=== PATIENT | male | born 1975 | race Caucasian/White ===

== ENCOUNTER 2017-02-21 09:34 | Emergency (ER) | payer MEDICAID, OTHER ==
[~2017-02-21] VITALS: Ht 188 cm; Wt 111.4 kg
[~2017-02-21 09:34] MED LIST: AMIO200 PO; ASPI81TA82 PO; CARV3.125 PO; CEPH500 PO; DOCU1CAP39 PO; FENO145T2 PO; OXYC1SOL5 PO; RIVA20 PO; ZOCO40TA PO
[2017-02-21 09:36] VITALS: BP 150/82; PULSE 62; RESP 16; TEMP 97.9; O2SAT 98
[2017-02-21 09:40] VITALS: BP 132/81; PULSE 60; RESP 18; O2SAT 97
[2017-02-21] MEDS ORDERED: SODIUM CHLORIDE 0.9% FLUSH 10 ML FLUSH IVF PRN (10:00)
[2017-02-21 10:17] LABS: AUTOMATED NEUTROPHIL # 3.4 TH/MM3 (1.8-7.7); BASOPHIL % 0.4 % (0.0-2.0); EOSINOPHIL # 0.3 TH/MM3 (0-0.4); EOSINOPHIL % 5.6 % (0.0-4.0); HEMATOCRIT 44.5 % (39.0-51.0); HEMO FLAGS DIFF FINAL; LYMPH % 27.7 % (9.0-44.0); LYMPHOCYTE # 1.7 TH/MM3 (1.0-4.8); MEAN CELL VOLUME 86.3 FL (80.0-100.0); MEAN CORPUSCULAR HEMOGLOBIN 28.7 PG (27.0-34.0); MEAN CORPUSCULAR HGB CONC 33.3 % (32.0-36.0); MONO % 12.3 % (0.0-8.0); PLATELET COUNT 183 TH/MM3 (150-450); RED BLOOD COUNT 5.16 MIL/MM3 (4.50-5.90); RED CELL DISTRIBUTION WIDTH 12.9 % (11.6-17.2); WHITE BLOOD COUNT 6.2 TH/MM3 (4.0-11.0)
--- NOTE | 2017-02-21 10:22 | RADRPT ---
EXAM DATE/TIME: 02/21/2017 10:03 [facility] COMPARISON: No previous studies available for comparison. INDICATIONS : Chest discomfort. MEDICAL HISTORY : Hypertension. Congestive heart failure. Smoker. SURGICAL HISTORY : Pacemaker. ENCOUNTER: Initial ACUITY: 1 day PAIN SCORE: 10/29 LOCATION: Bilateral chest FINDINGS: Portable AP view of the chest demonstrates a normal-sized cardiac silhouette. No effusion, consolidat ion, or pneumothorax is visualized. Lungs are underinflated. There is a single lead left chest wall c ardiac pacing device/AICD present. The bones and soft tissues demonstrate no acute abnormality. CONCLUSION: Underinflated examination without an acute cardiopulmonary abnormality identified. Da Zarate MD on February 21, 2017 at 10:19 Board Certified Radiologist. This report was verified electronically.
[2017-02-21 10:24] LABS: APTT (PATIENT) 30.8 SEC (24.3-30.1); PROTHROMBIN TIME - PATIENT 11.3 SEC (9.8-11.6)
[2017-02-21 10:36] LABS: ANION GAP 7 MEQ/L (5-15); BICARBONATE 28.3 MEQ/L (21.0-32.0); BLOOD UREA NITROGEN 8 MG/DL (7-18); CHLORIDE 105 MEQ/L (98-107); GLOMERULAR FILTRATION RATE 79 ML/MIN (>89); MAGNESIUM 2.1 MG/DL (1.5-2.5); POTASSIUM 4.1 MEQ/L (3.5-5.1); SODIUM (NA) 140 MEQ/L (136-145)
[2017-02-21 10:40] LABS: CREATINE KINASE 161 U/L (39-308)
[2017-02-21] MEDS ORDERED: ATOR20TA15 PO (10:41)
[2017-02-21] MEDS ORDERED: LISI-515 PO (10:41)
[2017-02-21] MEDS ORDERED: CARV12.52 PO (10:41)
[2017-02-21] MEDS ORDERED: XARE20TA PO (10:41)
--- NOTE | 2017-02-21 10:42 | PD ---
HPI Chief Complaint: Chest Pain Time Seen by Provider: 09:55 Travel History International Travel<30 days: No Contact w/Intl Traveler<30days: No Traveled to known affect area: No History of Present Illness HPI This is a 41-year-old male with a history of cardiomyopathy, who has an AICD, who presents today with complaints of intermittent palpitations and chest pressure. The patient states he feels more anxious than he also. The patient states he's had a GI bug for the last 24 hours and felt palpitations earlier today. He states he called the internet marketing intern office who told him to come in here and get checked out. The patient denies any chest pressure the time of my examination. He denies any shortness of breath. He denies any dizziness. He states that today when he was at the tire came in getting his van worked on, he thought he felt palpitations. There are no other complaints time my examination. PFSH Past Medical History Hx Anticoagulant Therapy: Yes (XARELTO) Arthritis: Yes Asthma: No Atrial Fibrillation: Yes Autoimmune Disease: No Blood Disorders: Yes Anxiety: Yes (PANIC ATTACKS) Depression: Yes Heart Rhythm Problems: Yes (AFIB) Cancer: No Cardiac Catheterization: Yes Cardiovascular Problems: Yes (CARDIAC ARREST, AICD, CHF, A-FIB) High Cholesterol: Yes Chemotherapy: No Chest Pain: Yes Congestive Heart Failure: Yes (SINCE 2002) COPD: No Cerebrovascular Accident: Yes (TIA X 3) Diabetes: No Diminished Hearing: No Endocrine: No Gastrointestinal Disorders: Yes GERD: Yes Genitourinary: No Hiatal Hernia: No Hypertension: Yes Immune Disorder: No Kidney Stones: No Musculoskeletal: No Neurologic: No Psychiatric: Yes (TREATED BY ZACHARIAH ARNETT IN PAST) Reproductive: No Respiratory: Yes Immunizations Current: Yes Radiation Therapy: No Renal Failure: No Sickle Cell Disease: No Sleep Apnea: No Thyroid Disease: No Ulcer: No Tetanus Vaccination: < 5 Years Influenza Vaccination: Yes PNEUMOCCOCAL Vaccine (Year): 2 Past Surgical History Abdominal Surgery: No AICD: Yes (BIO TRONIC 11/2011) Appendectomy: No Arteriovenous Shunt: No Cardiac Surgery: Yes (PACER/AICD) Cholecystectomy: No Coronary Artery Bypass Graft: No Ear Surgery: No Endocrine Surgery: No Eye Surgery: No Genitourinary Surgery: No Gynecologic Surgery: No Insulin Pump: No Joint Replacement: No Neurologic Surgery: No Oral Surgery: No Thoracic Surgery: No Other Surgery: Yes (AICD) Social History Alcohol Use: Yes (2-3 BEERS PER DAY) Tobacco Use: Yes (1 PACK EVERY 3 DAYS) Substance Use: Yes (MARIJUANA OCCASIONALLY) Allergies-Medications (Allergen,Severity, Reaction): Coded Allergies: No Known Allergies (Unverified , 02/21/17) Reported Meds & Prescriptions Reported Meds & Active Scripts Active Ativan (Lorazepam) 1 Mg Tab 1 Mg PO Q6H PRN Reported Atorvastatin (Atorvastatin Calcium) 20 Mg Tab 20 Mg PO HS Carvedilol 12.5 Mg Tab 12.5 Mg PO BID Xarelto (Rivaroxaban) 20 Mg Tab 20 Mg PO DAILY Lisinopril 20 Mg Tab 20 Mg PO DAILY Review of Systems Except as stated in HPI: all other systems reviewed are Neg General / Constitutional: No: Fever, Chills HENT: No: Headaches, Lightheadedness Cardiovascular: Positive: Chest Pain or Discomfort, Palpitations (chest pressure earlier earlier) Gastrointestinal: Positive: Diarrhea (diarrhea yesterday, none today), No: Nausea, Vomiting, Abdominal Pain Genitourinary: No: Decreased Urinary Output Musculoskeletal: No: Weakness Neurologic: No: Weakness, Dizziness, Headache, Change in Mentation Psychiatric: Positive: Anxiety, No: Depression Physical Exam Narrative GENERAL: Well-developed well-nourished male in no acute respiratory distress. SKIN: Focused skin assessment warm/dry. HEAD: Atraumatic. Normocephalic. EYES: No scleral icterus. No injection or drainage. ENT: Mucous membranes pink and moist. NECK: Trachea midline. Supple. No JVD. CARDIOVASCULAR: Regular rate and rhythm. Rate was in the 60s. No murmur appreciated. RESPIRATORY: No accessory muscle use. Clear to auscultation. Breath sounds equal bilaterally. GASTROINTESTINAL: Abdomen soft, non-tender, nondistended. MUSCULOSKELETAL: No obvious deformities. No clubbing. No cyanosis. No edema. NEUROLOGICAL: Awake and alert. No obvious cranial nerve deficits. Motor grossly within normal limits. Normal speech. Data Data Last Documented VS Vital Signs Date Time Temp Pulse Resp B/P Pulse Ox O2 Delivery O2 Flow Rate FiO2 02/21/17 11:30 54 16 115/81 97 Room Air 02/21/17 09:36 97.9 Orders Electrocardiogram (02/21/17 ) Basic Metabolic Panel (Bmp) (02/21/17 09:55) Ckmb (Isoenzyme) Profile (02/21/17 09:55) Complete Blood Count With Diff (02/21/17 09:55) Magnesium (Mg) (02/21/17 09:55) Prothrombin Time / Inr (Pt) (02/21/17 09:55) Act Partial Throm Time (Ptt) (02/21/17 09:55) Troponin I (02/21/17 09:55) Chest, Single Ap (02/21/17 09:55) Ecg Monitoring (02/21/17 09:55) Bilateral Bp Monitoring (02/21/17 09:55) Iv Access Insert/Monitor (02/21/17:55) Oximetry (02/21/17:55) Oxygen Administration (02/21/17 09:55) Sodium Chloride 0.9% Flush (Ns Flush) (02/21/17 10:00) CKMB (02/21/17 09:53) CKMB% (02/21/17 09:53) Labs Laboratory Tests Test 02/21/17 09:53 White Blood Count 6.2 TH/MM3 Red Blood Count 5.16 MIL/MM3 Hemoglobin 14.8 GM/DL Hematocrit 44.5 % Mean Corpuscular Volume 86.3 FL Mean Corpuscular Hemoglobin 28.7 PG Mean Corpuscular Hemoglobin 33.3 % Concent Red Cell Distribution Width 12.9 % Platelet Count 183 TH/MM3 Mean Platelet Volume 8.7 FL Neutrophils (%) (Auto) 54.0 % Lymphocytes (%) (Auto) 27.7 % Monocytes (%) (Auto) 12.3 % Eosinophils (%) (Auto) 5.6 % Basophils (%) (Auto) 0.4 % Neutrophils # (Auto) 3.4 TH/MM3 Lymphocytes # (Auto) 1.7 TH/MM3 Monocytes # (Auto) 0.8 TH/MM3 Eosinophils # (Auto) 0.3 TH/MM3 Basophils # (Auto) 0.0 TH/MM3 CBC Comment DIFF FINAL Differential Comment Prothrombin Time 11.3 SEC Prothromb Time International 1.0 RATIO Ratio Activated Partial 30.8 SEC Thromboplast Time Sodium Level 140 MEQ/L Potassium Level 4.1 MEQ/L Chloride Level 105 MEQ/L Carbon Dioxide Level 28.3 MEQ/L Anion Gap 7 MEQ/L Blood Urea Nitrogen 8 MG/DL Creatinine 1.03 MG/DL Estimat Glomerular Filtration 79 ML/MIN Rate Random Glucose 92 MG/DL Calcium Level 9.1 MG/DL Magnesium Level 2.1 MG/DL Total Creatine Kinase 161 U/L Creatine Kinase MB 3.7 NG/ML Troponin I LESS THAN 0.02 NG/ML MDM Medical Decision Making Medical Screen Exam Complete: Yes Emergency Medical Condition: Yes Differential Diagnosis Electrolyte abnormalities versus ventricular tachycardia versus anemia. Narrative Course 41-year-old male with a history of cardiomyopathy who has an AICD in place, presents today with complaints of palpitations and racing heart. The patient states that today he was epigastric 20 felt this onset of the symptoms. EKG shows no evidence of acute process. Troponin was negative. His blood pressure was hovering in the low 100s 104 systolic here in the department. I discussed with him that I would talk to Dr. Rubio, his internet marketing intern to see if he would adjust his carvedilol. Dr. Rubio stated that he felt symptomatic. It 's really go back to his normal dose of 6.125 twice daily. We'll recommend that he follow up in the primary care physician for his anxiety. He'll make an appointment see Dr. Rubio for the cardiac condition. I will give him a prescription for Ativan 1 mg total of 10 tablets. He is instructed to follow up with his primary care physician for further dosing. Diagnosis Primary Impression: Palpitations Additional Impressions: NICM (nonischemic cardiomyopathy) Anxiety Med/Other Pt SpecificInfo: Prescription(s) given Scripts Lorazepam (Ativan)1 Mg Tab1 Mg PO Q6H PRN (ANXIETY AND/OR AGITATION) #10 TAB Ref 0 Prov:Jet Vasquez MD 02/21/17 Disposition: 01 DISCHARGE HOME Condition: Stable Jet Vasquez MD February 21, 2017 10:42
[2017-02-21 10:58] LABS: CKMB 3.7 NG/ML (0.5-3.6)
[2017-02-21 11:30] VITALS: BP 115/81; PULSE 54; RESP 16; O2SAT 97
[2017-02-21] MEDS ORDERED: LORA-474 PO (12:36)
--- NOTE | 2017-02-21 15:52 | EKG ---
Date Performed: 02/21/2017 Time Performed: 09:44:17 PTAGE: 41 years EKG: Sinus rhythm NORMAL ECG NO PREVIOUS TRACING DOCTOR: Cody Armendariz Interpretating Date/Time 02/21/2017 15:42:29
== END 2017-02-21 14:01 | disposition home or self-care (01) ==
LOC: NEPC 09:34
DX: R00.2 Palpitations (principal); I42.9 Cardiomyopathy, unspecified; F41.9 Anxiety disorder, unspecified; Z79.899 Other long term (current) drug therapy
CPT/HCPCS: 71010; 80048; 82550; 82552; 83735; 84484; 85025; 85610; 85730; 93005

== ENCOUNTER 2017-10-02 10:17 | Emergency (ER) | payer BC, MEDICAID ==
[~2017-10-02] VITALS: Ht 188 cm; Wt 115.0 kg
[~2017-10-02 10:17] MED LIST changes: -AMIO200 PO; -ASPI81TA82 PO; +ATOR20TA15 PO; +CARV12.52 PO; -CARV3.125 PO; -CEPH500 PO; -DOCU1CAP39 PO; -FENO145T2 PO; +LISI-515 PO; +LORA-474 PO; -OXYC1SOL5 PO; -RIVA20 PO; +XARE20TA PO; -ZOCO40TA PO
[2017-10-02 10:22] VITALS: BP 178/102; PULSE 65; RESP 17; TEMP 98.1; O2SAT 100
--- NOTE | 2017-10-02 11:37 | PD ---
HPI . Lightheadedness Chief Complaint: Dizziness Time Seen by Provider: 11:01 Travel History International Travel<30 days: No Contact w/Intl Traveler<30days: No Traveled to known affect area: No History of Present Illness HPI 41 year old male patient presents to the emergency department for evaluation of lightheadedness. Patient states he has had a cough, nasal congestion and sore throat for a couple days and this morning woke up feeling dizzy. Patient had small breakfast, then started working outside, felt nauseous and lightheaded. Patient states he still tried to work and went to [employer] and lifted some heavy boxes and then felt like he was going to pass out. Patient states the reason why he had a small breakfast is he has been trying to lose weight. Patient has history of cardiac arrest in 2016 and has an implanted defibrillator. Patient denies any fever or chills, diarrhea, abdominal pain, vomiting, hematuria, dysuria. Patient currently smokes 2 cigarettes a day. Patient denies any drug use. PFSH Past Medical History Hx Anticoagulant Therapy: Yes (XARELTO) Arthritis: Yes Asthma: No Atrial Fibrillation: Yes Autoimmune Disease: No Blood Disorders: Yes Anxiety: Yes (PANIC ATTACKS) Depression: Yes Heart Rhythm Problems: Yes (AFIB) Cancer: No Cardiac Catheterization: Yes Cardiovascular Problems: Yes (AICD) High Cholesterol: Yes Chemotherapy: No Chest Pain: Yes Congestive Heart Failure: Yes COPD: No Cerebrovascular Accident: Yes (TIA X 3) Diabetes: No Diminished Hearing: No Deep Vein Thrombosis: Yes Endocrine: No Gastrointestinal Disorders: Yes GERD: Yes Genitourinary: No Hiatal Hernia: No Hypertension: Yes Immune Disorder: No Kidney Stones: No Musculoskeletal: No Neurologic: No Psychiatric: Yes (TREATED BY ZACHARIAH ARNETT IN PAST) Reproductive: No Respiratory: Yes Immunizations Current: Yes Radiation Therapy: No Renal Failure: No Sickle Cell Disease: No Sleep Apnea: No Thyroid Disease: No Ulcer: No PNEUMOCCOCAL Vaccine (Year): 2 Past Surgical History Abdominal Surgery: No AICD: Yes (BIO TRONIC 11/2011) Appendectomy: No Arteriovenous Shunt: No Cardiac Surgery: Yes Cholecystectomy: No Coronary Artery Bypass Graft: No Ear Surgery: No Endocrine Surgery: No Eye Surgery: No Genitourinary Surgery: No Gynecologic Surgery: No Insulin Pump: No Joint Replacement: No Neurologic Surgery: No Oral Surgery: No Pacemaker: Yes (biotronik ) Thoracic Surgery: No Other Surgery: Yes (AICD) Social History Alcohol Use: Yes (occassionaly ) Tobacco Use: Yes (2 cig a day ) Substance Use: No Allergies-Medications (Allergen,Severity, Reaction): Coded Allergies: No Known Allergies (Unverified Adverse Reaction, Unknown, 10/02/17) Reported Meds & Prescriptions Reported Meds & Active Scripts Active Ativan (Lorazepam) 1 Mg Tab 1 Mg PO Q6H PRN Reported Atorvastatin (Atorvastatin Calcium) 20 Mg Tab 20 Mg PO HS Carvedilol 12.5 Mg Tab 12.5 Mg PO BID Xarelto (Rivaroxaban) 20 Mg Tab 20 Mg PO DAILY Lisinopril 20 Mg Tab 20 Mg PO DAILY Review of Systems Except as stated in HPI: all other systems reviewed are Neg Physical Exam Narrative GENERAL: Well-nourished, well-developed 41-year-old male patient in no acute distress. Nontoxic appearing. SKIN: Focused skin assessment warm/dry. HEAD: Normocephalic. Atraumatic. EYES: No scleral icterus. No injection or drainage. NEUROLOGICAL: Awake and alert. Cranial nerves II through XII intact. Motor and sensory grossly within normal limits. Five out of 5 muscle strength in all muscle groups. Normal speech. NECK: Supple, trachea midline. No JVD or lymphadenopathy. CARDIOVASCULAR: Regular rate and rhythm without murmurs, gallops, or rubs. RESPIRATORY: Breath sounds equal bilaterally. No accessory muscle use. GASTROINTESTINAL: Abdomen soft, non-tender, nondistended. MUSCULOSKELETAL: No obvious deformity, ecchymosis, erythema, cyanosis, or edema. BACK: Nontender without obvious deformity. No CVA tenderness. Data Data Last Documented VS Vital Signs Date Time Temp Pulse Resp B/P (MAP) Pulse Ox O2 Delivery O2 Flow Rate FiO2 10/02/17 10:35 62 18 99 Room Air 10/02/17 10:22 98.1 178/102 (127) Orders Orders Electrocardiogram (10/02/17 11:09) Complete Blood Count With Diff (10/02/17 11:09) Comprehensive Metabolic Panel (10/02/17 11:09) Magnesium (Mg) (10/02/17 11:09) B-Type Natriuretic Peptide (10/02/17 11:09) Ckmb (Isoenzyme) Profile (10/02/17 11:09) Troponin I (10/02/17 11:09) Act Partial Throm Time (Ptt) (10/02/17 11:09) Prothrombin Time / Inr (Pt) (10/02/17 11:09) Urinalysis - C+S If Indicated (10/02/17 11:09) Chest, Single Ap (10/02/17 11:09) Blood Glucose (10/02/17 11:09) Ecg Monitoring (10/02/17 11:09) Iv Access Insert/Monitor (10/02/17 11:09) Oximetry (10/02/17 11:09) CKMB (10/02/17 11:15) CKMB% (10/02/17 11:15) Labs Laboratory Tests Test 10/02/17 11:15 10/02/17 13:10 White Blood Count 5.8 TH/MM3 Red Blood Count 5.13 MIL/MM3 Hemoglobin 14.7 GM/DL Hematocrit 44.0 % Mean Corpuscular Volume 85.7 FL Mean Corpuscular Hemoglobin 28.7 PG Mean Corpuscular Hemoglobin Concent 33.5 % Red Cell Distribution Width 13.0 % Platelet Count 225 TH/MM3 Mean Platelet Volume 8.6 FL CBC Comment AUTO DIFF Differential Total Cells Counted 100 Neutrophils % (Manual) 48 % Band Neutrophils % 1 % Lymphocytes % 33 % Monocytes % 10 % Eosinophils % 8 % Neutrophils # (Manual) 2.8 TH/MM3 Differential Comment FINAL DIFF MANUAL Platelet Estimate NORMAL Platelet Morphology Comment NORMAL Red Cell Morphology Comment NORMAL Prothrombin Time 12.7 SEC Prothromb Time International Ratio 1.3 RATIO Activated Partial Thromboplast Time 33.3 SEC Blood Urea Nitrogen 9 MG/DL Creatinine 0.96 MG/DL Random Glucose 117 MG/DL Total Protein 7.5 GM/DL Albumin 3.8 GM/DL Calcium Level 9.1 MG/DL Magnesium Level 2.1 MG/DL Alkaline Phosphatase 77 U/L Aspartate Amino Transf (AST/SGOT) 27 U/L Alanine Aminotransferase (ALT/SGPT) 51 U/L Total Bilirubin 0.6 MG/DL Sodium Level 138 MEQ/L Potassium Level 4.1 MEQ/L Chloride Level 103 MEQ/L Carbon Dioxide Level 30.9 MEQ/L Anion Gap 4 MEQ/L Estimat Glomerular Filtration Rate 85 ML/MIN Total Creatine Kinase 144 U/L Creatine Kinase MB 3.2 NG/ML Troponin I LESS THAN 0.02 NG/ML B-Type Natriuretic Peptide 8 PG/ML Urine Color LIGHT-YELLOW Urine Turbidity CLEAR Urine pH 5.5 Urine Specific [place] 1.008 Urine Protein NEG mg/dL Urine Glucose (UA) NEG mg/dL Urine Ketones NEG mg/dL Urine Occult Blood NEG Urine Nitrite NEG Urine Bilirubin NEG Urine Urobilinogen LESS THAN 2.0 MG/DL Urine Leukocyte Esterase NEG Urine RBC LESS THAN 1 /hpf Urine WBC LESS THAN 1 /hpf Urine Mucus FEW /lpf Microscopic Urinalysis Comment CULT NOT INDICATED MDM Medical Decision Making Medical Screen Exam Complete: Yes Emergency Medical Condition: Yes Differential Diagnosis Differential diagnoses include but not limited to electrolyte abnormality, sinusitis, pharyngitis, coronary event, vertigo Narrative Course Patient placed on monitor, 12 lead EKG obtained, IV obtained and blood work sent the lab. CBC, CMP, MAG, BNP, TROP/CK, PT/INR, UA ordered and pending. Chest X-ray ordered and pending. Blood glucose ordered and pending. Glucose is 114. Blood work shows no acute abnormalities. Chest x-ray shows no acute cardiopulmonary disease. Urine is negative for any acute abnormalities. Based on patient's symptoms, clinical presentation, lab results, radiological results , vital sign review and physical exam it is not necessary to admit the patient to the hospital or keep the patient in the emergency department for further evaluation. Patient will be discharged home with instructions to return the emergency Department with any worsening condition. Laboratory Tests Test 10/02/17 11:15 White Blood Count 5.8 TH/MM3 Red Blood Count 5.13 MIL/MM3 Hemoglobin 14.7 GM/DL Hematocrit 44.0 % Mean Corpuscular Volume 85.7 FL Mean Corpuscular Hemoglobin 28.7 PG Mean Corpuscular Hemoglobin Concent 33.5 % Red Cell Distribution Width 13.0 % Platelet Count 225 TH/MM3 Mean Platelet Volume 8.6 FL CBC Comment AUTO DIFF Differential Total Cells Counted 100 Neutrophils % (Manual) 48 % Band Neutrophils % 1 % Lymphocytes % 33 % Monocytes % 10 % Eosinophils % 8 % Neutrophils # (Manual) 2.8 TH/MM3 Differential Comment FINAL DIFF MANUAL Platelet Estimate NORMAL Platelet Morphology Comment NORMAL Red Cell Morphology Comment NORMAL Prothrombin Time 12.7 SEC Prothromb Time International Ratio 1.3 RATIO Activated Partial Thromboplast Time 33.3 SEC Blood Urea Nitrogen 9 MG/DL Creatinine 0.96 MG/DL Random Glucose 117 MG/DL Total Protein 7.5 GM/DL Albumin 3.8 GM/DL Calcium Level 9.1 MG/DL Magnesium Level 2.1 MG/DL Alkaline Phosphatase 77 U/L Aspartate Amino Transf (AST/SGOT) 27 U/L Alanine Aminotransferase (ALT/SGPT) 51 U/L Total Bilirubin 0.6 MG/DL Sodium Level 138 MEQ/L Potassium Level 4.1 MEQ/L Chloride Level 103 MEQ/L Carbon Dioxide Level 30.9 MEQ/L Anion Gap 4 MEQ/L Estimat Glomerular Filtration Rate 85 ML/MIN Total Creatine Kinase 144 U/L Creatine Kinase MB 3.2 NG/ML Troponin I LESS THAN 0.02 NG/ML B-Type Natriuretic Peptide 8 PG/ML Last Impressions Chest X-Ray 10/02/17 1109 Signed Impressions: Service Date/Time: September 11:32 - CONCLUSION: No acute cardiopulmonary disease. Johnathan Syed MD Diagnosis Primary Impression: Anxiety Referrals: Primary Care Physician Patient Instructions: Anxiety (ED), General Instructions Additional Instructions: Please return to emergency department if your symptoms return or worsen. Follow up with your primary care provider. Regular diet as tolerated. Supportive care, stay hydrated, get enough rest. Disposition: 01 DISCHARGE HOME Condition: Stable Marita Trejo Oct 02, 2017 11:37
[2017-10-02 11:52] LABS: HEMOGLOBIN 14.7 GM/DL (13.0-17.0); MEAN CELL VOLUME 85.7 FL (80.0-100.0); MEAN CORPUSCULAR HEMOGLOBIN 28.7 PG (27.0-34.0); MEAN CORPUSCULAR HGB CONC 33.5 % (32.0-36.0); MEAN PLATELET VOLUME 8.6 FL (7.0-11.0); PLATELET COUNT 225 TH/MM3 (150-450); RED BLOOD COUNT 5.13 MIL/MM3 (4.50-5.90); WHITE BLOOD COUNT 5.8 TH/MM3 (4.0-11.0)
[2017-10-02 11:53] LABS: INTERNATIONAL NORMALIZED RATIO 1.3 RATIO; PROTHROMBIN TIME - PATIENT 12.7 SEC (9.8-11.6)
[2017-10-02 12:06] LABS: ALBUMIN 3.8 GM/DL (3.4-5.0); ALT (GPT) 51 U/L (12-78); BICARBONATE 30.9 MEQ/L (21.0-32.0); BLOOD UREA NITROGEN 9 MG/DL (7-18); CALCIUM 9.1 MG/DL (8.5-10.1); CHLORIDE 103 MEQ/L (98-107); GLUCOSE,RANDOM 117 MG/DL (74-106); MAGNESIUM 2.1 MG/DL (1.5-2.5); SODIUM (NA) 138 MEQ/L (136-145)
[2017-10-02 12:10] LABS: ALKALINE PHOSPHATASE 77 U/L (45-117); AST (GOT) 27 U/L (15-37); CREATININE 0.96 MG/DL (0.60-1.30); GLOMERULAR FILTRATION RATE 85 ML/MIN (>89); TOTAL BILIRUBIN ADULT 0.6 MG/DL (0.2-1.0); TOTAL PROTEIN 7.5 GM/DL (6.4-8.2); TROPONIN I LESS THAN 0.02 NG/ML (0.02-0.05)
--- NOTE | 2017-10-02 12:15 | RADRPT ---
EXAM DATE/TIME: 10/02/2017 11:32 [facility] COMPARISON: CHEST SINGLE AP, February 21, 2017, 10:03. INDICATIONS : Syncope and short of breath. MEDICAL HISTORY : Hypertension. Congestive heart failure. Smoker. SURGICAL HISTORY : Pacemaker. ENCOUNTER: Initial ACUITY: 1 day PAIN SCORE: 0/10 LOCATION: Bilateral chest FINDINGS: The heart is stable. The pulmonary vascular and is normal. The lungs are clear. Left subclavian AICD has its tip in the right ventricle. No pneumothorax is noted. CONCLUSION: No acute cardiopulmonary disease. Johnathan Syed MD on October 02, 2017 at 12:11 Board Certified Radiologist. This report was verified electronically.
[2017-10-02 12:21] LABS: BANDS 1 % (0-6); LYMPHOCYTES 33 % (9-44); MONOCYTES 10 % (0-8); NEUTROPHIL # MANUAL DIFF 2.8 TH/MM3 (1.8-7.7); POLYS (SEG NEUTROPHILS) 48 % (16-70)
[2017-10-02 14:11] LABS: BILIRUBIN, URINE NEG (NEG); BLOOD, URINE NEG (NEG); GLUCOSE,URINE NEG (NEG); KETONE, URINE NEG (NEG); MUCUS URINE FEW /lpf (OCC); NITRITE,URINE NEG (NEG); PH, URINE 5.5 (5.0-8.5); URINE COLOR LIGHT-YELLOW (YELLW/STRAW); URINE LEUKOCYTE ESTERASE NEG (NEG)
[2017-10-02 14:40] VITALS: BP 120/85
--- NOTE | 2017-10-04 12:26 | EKG ---
Date Performed: 10/02/2017 Time Performed: 10:37:12 PTAGE: 41 years EKG: SINUS BRADYCARDIA LOW QRS VOLTAGE IN PRECORDIAL LEADS BORDERLINE ECG PREVIOUS TRACING : 02/21/2017 09.44 DOCTOR: Eli Rios Interpretating Date/Time 10/04/2017 12:25:57
== END 2017-10-02 14:42 | disposition home or self-care (01) ==
LOC: NEPC 10:17
DX: F41.9 Anxiety disorder, unspecified (principal); F17.210 Nicotine dependence, cigarettes, uncomplicated; E78.00 Pure hypercholesterolemia, unspecified; I11.0 Hypertensive heart disease with heart failure; I50.9 Heart failure, unspecified; I48.91 Unspecified atrial fibrillation; Z79.01 Long term (current) use of anticoagulants
CPT/HCPCS: 71010; 80053; 81001; 82550; 82552; 83735; 83880; 84484; 85007; 85027; 85610; 85730; 93005; 99285

== ENCOUNTER 2018-01-06 09:59 | Emergency (ER) | payer MEDICAID ==
[2018-01-06 10:30] VITALS: BP 129/78; PULSE 61; RESP 18; TEMP 97.5; O2SAT 98
[2018-01-06 11:20] LABS: AUTOMATED NEUTROPHIL # 5.3 TH/MM3 (1.8-7.7); BASOPHIL % 0.6 % (0.0-2.0); EOSINOPHIL # 0.4 TH/MM3 (0-0.4); HEMATOCRIT 42.9 % (39.0-51.0); HEMOGLOBIN 14.5 GM/DL (13.0-17.0); LYMPH % 21.5 % (9.0-44.0); LYMPHOCYTE # 1.7 TH/MM3 (1.0-4.8); MEAN CELL VOLUME 85.4 FL (80.0-100.0); MEAN CORPUSCULAR HEMOGLOBIN 28.8 PG (27.0-34.0); MEAN CORPUSCULAR HGB CONC 33.8 % (32.0-36.0); MEAN PLATELET VOLUME 7.9 FL (7.0-11.0); MONO % 7.6 % (0.0-8.0); MONOCYTE # 0.6 TH/MM3 (0-0.9); NEUT % 65.3 % (16.0-70.0); PLATELET COUNT 224 TH/MM3 (150-450); RED BLOOD COUNT 5.02 MIL/MM3 (4.50-5.90); RED CELL DISTRIBUTION WIDTH 13.3 % (11.6-17.2); WHITE BLOOD COUNT 8.1 TH/MM3 (4.0-11.0)
[2018-01-06 11:31] LABS: INTERNATIONAL NORMALIZED RATIO 1.2 RATIO; PROTHROMBIN TIME - PATIENT 11.8 SEC (9.8-11.6)
[2018-01-06 11:40] LABS: BICARBONATE 28.1 MEQ/L (21.0-32.0); CREATININE 0.9 MG/DL (0.60-1.30)
[2018-01-06] MEDS ORDERED: FLUO-1 PO (12:59)
--- NOTE | 2018-01-06 13:19 | PD ---
HPI Chief Complaint: Dizziness Time Seen by Provider: 12:51 Travel History International Travel<30 days: No Contact w/Intl Traveler<30days: No Traveled to known affect area: No History of Present Illness HPI Patient is a 42-year-old male presents emergency department for evaluation of shortness of breath palpitations. Patient also states his been having some ankle pain. He was working outside when this first started. States has a history of DVT and is on xarelto. Denies any fever denies any cough or fever. Patient states symptoms started earlier today, associated signs symptoms in context as above, waxing and waning. PFSH Past Medical History Hx Anticoagulant Therapy: Yes (XARELTO) Arthritis: Yes Asthma: No Atrial Fibrillation: Yes Autoimmune Disease: No Blood Disorders: Yes Anxiety: Yes (PANIC ATTACKS) Depression: Yes Heart Rhythm Problems: Yes (AFIB) Cancer: No Cardiac Catheterization: Yes Cardiovascular Problems: Yes (AICD) High Cholesterol: Yes Chemotherapy: No Chest Pain: Yes Congestive Heart Failure: Yes COPD: No Cerebrovascular Accident: Yes (TIA X 3) Diabetes: No Diminished Hearing: No Deep Vein Thrombosis: Yes Endocrine: No Gastrointestinal Disorders: Yes GERD: Yes Genitourinary: No Hiatal Hernia: No Hypertension: Yes Immune Disorder: No Kidney Stones: No Musculoskeletal: No Neurologic: No Psychiatric: Yes (TREATED BY ZACHARIAH ARNETT IN PAST) Reproductive: No Respiratory: Yes Immunizations Current: Yes Radiation Therapy: No Renal Failure: No Sickle Cell Disease: No Sleep Apnea: No Thyroid Disease: No Ulcer: No PNEUMOCCOCAL Vaccine (Year): 2 Past Surgical History Abdominal Surgery: No AICD: Yes (BIO TRONIC 11/2011) Appendectomy: No Arteriovenous Shunt: No Cardiac Surgery: Yes Cholecystectomy: No Coronary Artery Bypass Graft: No Ear Surgery: No Endocrine Surgery: No Eye Surgery: No Genitourinary Surgery: No Gynecologic Surgery: No Insulin Pump: No Joint Replacement: No Neurologic Surgery: No Oral Surgery: No Pacemaker: Yes (biotronik ) Thoracic Surgery: No Other Surgery: Yes (AICD) Social History Alcohol Use: Yes (occassionaly ) Tobacco Use: Yes (3 cig a day ) Substance Use: No Allergies-Medications (Allergen,Severity, Reaction): Coded Allergies: No Known Allergies (Unverified Adverse Reaction, Unknown, 01/06/18) Reported Meds & Prescriptions Reported Meds & Active Scripts Active Ativan (Lorazepam) 1 Mg Tab 1 Mg PO Q6H PRN Reported Prozac (Fluoxetine HCl) 10 Mg Cap 10 Mg PO DAILY Atorvastatin (Atorvastatin Calcium) 20 Mg Tab 20 Mg PO HS Carvedilol 12.5 Mg Tab 12.5 Mg PO BID Xarelto (Rivaroxaban) 20 Mg Tab 20 Mg PO DAILY Lisinopril 20 Mg Tab 20 Mg PO DAILY Review of Systems Except as stated in HPI: all other systems reviewed are Neg Physical Exam Narrative GENERAL: Well-developed well-nourished no obvious distress SKIN: Focused skin assessment warm/dry. HEAD: Atraumatic. Normocephalic. EYES: Pupils equal and round. No scleral icterus. No injection or drainage. ENT: No nasal bleeding or discharge. Mucous membranes pink and moist. NECK: Trachea midline. No JVD. CARDIOVASCULAR: Regular rate and rhythm. No murmur appreciated. 2+ bilateral equal pulses in all 4 extremities per RESPIRATORY: No accessory muscle use. Clear to auscultation. Breath sounds equal bilaterally. GASTROINTESTINAL: Abdomen soft, non-tender, nondistended. Hepatic and splenic margins not palpable. MUSCULOSKELETAL: No obvious deformities. No clubbing. No cyanosis. No edema. Appreciated no bony abnormality no swelling of his lower extremities. Pulses motor and sensory intact distally in all 4 extremities per NEUROLOGICAL: Awake and alert. No obvious cranial nerve deficits. Motor grossly within normal limits. Normal speech. PSYCHIATRIC: Appropriate mood and affect; insight and judgment normal. Data Data Last Documented VS Orders Orders Complete Blood Count With Diff (01/06/18 10:32) Basic Metabolic Panel (Bmp) (01/06/18 10:32) Act Partial Throm Time (Ptt) (01/06/18 10:32) Prothrombin Time / Inr (Pt) (01/06/18 10:32) Electrocardiogram (01/06/18 ) Us Leg Venous Doppler (01/06/18 13:15) Ed Discharge Order (01/06/18 15:12) Labs Laboratory Tests Test 01/06/18 11:00 White Blood Count 8.1 TH/MM3 Red Blood Count 5.02 MIL/MM3 Hemoglobin 14.5 GM/DL Hematocrit 42.9 % Mean Corpuscular Volume 85.4 FL Mean Corpuscular Hemoglobin 28.8 PG Mean Corpuscular Hemoglobin Concent 33.8 % Red Cell Distribution Width 13.3 % Platelet Count 224 TH/MM3 Mean Platelet Volume 7.9 FL Neutrophils (%) (Auto) 65.3 % Lymphocytes (%) (Auto) 21.5 % Monocytes (%) (Auto) 7.6 % Eosinophils (%) (Auto) 5.0 % Basophils (%) (Auto) 0.6 % Neutrophils # (Auto) 5.3 TH/MM3 Lymphocytes # (Auto) 1.7 TH/MM3 Monocytes # (Auto) 0.6 TH/MM3 Eosinophils # (Auto) 0.4 TH/MM3 Basophils # (Auto) 0.0 TH/MM3 CBC Comment DIFF FINAL Differential Comment Prothrombin Time 11.8 SEC Prothromb Time International Ratio 1.2 RATIO Activated Partial Thromboplast Time 29.8 SEC Blood Urea Nitrogen 13 MG/DL Creatinine 0.90 MG/DL Random Glucose 132 MG/DL Calcium Level 9.0 MG/DL Sodium Level 139 MEQ/L Potassium Level 3.9 MEQ/L Chloride Level 105 MEQ/L Carbon Dioxide Level 28.1 MEQ/L Anion Gap 6 MEQ/L Estimat Glomerular Filtration Rate 92 ML/MIN [facility] Medical Decision Making Medical Screen Exam Complete: Yes Emergency Medical Condition: Yes Differential Diagnosis DVT, PE seems unlikely, shortness of breath, palpitations, AICD discharge, palpitations. Narrative Course Patient room to the emergency department, DVT ultrasound negative, his AICD was interpreted does not show any abnormality. No events. Basic labs are reassuring, chest x-ray reassuring. Highly doubt PE as the patient is currently on Xarelto. Patient appears well in obvious distress. I discussed with him that he appears well in no distress. At this time I think he is stable for discharge to follow-up with his technical consultant and he would like to do this. Discussed returning to criteria. Diagnosis Primary Impression: Palpitations Disposition: DISCHARGE HOME Condition: Stable Johnathan Rosado MD Jan 06, 2018 13:19
--- NOTE | 2018-01-06 14:42 | EKG ---
Date Performed: 01/06/2018 Time Performed: 10:56:25 PTAGE: 42 years EKG: SINUS BRADYCARDIA WITH OCCASIONAL SUPRAVENTRICULAR PREMATURE COMPLEXES BORDERLINE ECG PREVIOUS TRACING : 10/02/2017 10.37 No significant change from previous tracing noted. DOCTOR: Richard Ramires Interpretating Date/Time 01/06/2018 14:41:48
--- NOTE | 2018-01-06 14:51 | RADRPT ---
EXAM DATE/TIME: 01/06/2018 13:44 [facility] COMPARISON: No previous studies available for comparison. INDICATIONS : Thrombosis. MEDICAL HISTORY : None. TIA. CHF. Afib. HTN. DVT. GERD. SURGICAL HISTORY : Pacemaker. Tendon repair hand. ENCOUNTER: Initial ACUITY: 1 week PAIN SCORE: 6/10 LOCATION: Left leg. TECHNIQUE: Venous ultrasound of the leg was performed from the inguinal ligament to the proximal calf. Real-dyana e, color Doppler and spectral tracing, compression and augmentation techniques were used. FINDINGS: There is normal compressibility of the deep venous system from the inguinal region to the proximal ca lf. No echogenic clot is seen in the lumen of the common femoral, femoral, popliteal, and posterior tibial veins. There is a normal response of the venous system to proximal and distal augmentation an d respiration. CONCLUSION: No evidence of DVT. Isac Mooney MD on January 06, 2018 at 14:49 Board Certified Radiologist. This report was verified electronically.
== END 2018-01-06 15:46 | disposition home or self-care (01) ==
LOC: NEPD 09:59
DX: R00.2 Palpitations (principal); F17.210 Nicotine dependence, cigarettes, uncomplicated; I11.0 Hypertensive heart disease with heart failure; I50.9 Heart failure, unspecified; E78.00 Pure hypercholesterolemia, unspecified; I48.91 Unspecified atrial fibrillation; Z79.01 Long term (current) use of anticoagulants
CPT/HCPCS: 80048; 85025; 85610; 85730; 93005; 93971

== ENCOUNTER 2018-04-02 15:01 | Emergency (ER) | payer MEDICAID, OTHER ==
[~2018-04-02 15:01] MED LIST changes: +FLUO-1 PO
[2018-04-02 15:19] VITALS: BP 144/64; PULSE 63; RESP 14; TEMP 98.4; O2SAT 98
[2018-04-02 16:13] LABS: AUTOMATED NEUTROPHIL # 5.4 TH/MM3 (1.8-7.7); BASOPHIL % 0.4 % (0.0-2.0); EOSINOPHIL # 0.5 TH/MM3 (0-0.4); EOSINOPHIL % 5.5 % (0.0-4.0); HEMATOCRIT 43.5 % (39.0-51.0); LYMPH % 27.4 % (9.0-44.0); LYMPHOCYTE # 2.5 TH/MM3 (1.0-4.8); MEAN CELL VOLUME 84.1 FL (80.0-100.0); MEAN CORPUSCULAR HGB CONC 34.5 % (32.0-36.0); MEAN PLATELET VOLUME 8.1 FL (7.0-11.0); MONO % 8.9 % (0.0-8.0); MONOCYTE # 0.8 TH/MM3 (0-0.9); NEUT % 57.8 % (16.0-70.0); PLATELET COUNT 228 TH/MM3 (150-450); RED BLOOD COUNT 5.17 MIL/MM3 (4.50-5.90); RED CELL DISTRIBUTION WIDTH 13.8 % (11.6-17.2); WHITE BLOOD COUNT 9.3 TH/MM3 (4.0-11.0)
[2018-04-02 16:26] LABS: BICARBONATE 28.7 MEQ/L (21.0-32.0); BLOOD UREA NITROGEN 15 MG/DL (7-18); CHLORIDE 104 MEQ/L (98-107); CREATININE 1.05 MG/DL (0.60-1.30); GLOMERULAR FILTRATION RATE 77 ML/MIN (>89); GLUCOSE,RANDOM 112 MG/DL (74-106); SODIUM (NA) 140 MEQ/L (136-145)
[2018-04-02 16:29] LABS: TROPONIN I LESS THAN 0.02 NG/ML (0.02-0.05)
[2018-04-02 17:30] VITALS: BP 129/75; PULSE 63; RESP 18; O2SAT 98
--- NOTE | 2018-04-02 18:43 | PD ---
HPI Chief Complaint: Cardiac Complaint Time Seen by Provider: 18:11 Travel History International Travel<30 days: No Contact w/Intl Traveler<30days: No Traveled to known affect area: No History of Present Illness HPI 42-year-old male complains left-sided chest pain. Patient states that he has intermittent muscle spasm in the left anterior chest wall for the past 2 days. Patient states that the muscle spasm pain is intermittent short duration. Patient denies any pain radiation. Patient states that he has occasional tingling sensation and numbness sensation of the left arm. Patient denies palpitation nausea diaphoresis. Patient denies any shortness of breath. Patient denies any coughing congestion. Patient has a history of tachycardia and CHF. Patient status post AICD placement. Patient also has history anxiety and panic attack. Patient has history of hypertension and hyperlipidemia. PFSH Past Medical History Hx Anticoagulant Therapy: Yes (XARELTO) Arthritis: Yes Asthma: No Atrial Fibrillation: Yes Autoimmune Disease: No Blood Disorders: Yes Anxiety: Yes (PANIC ATTACKS) Depression: Yes Heart Rhythm Problems: Yes (AFIB) Cancer: No Cardiac Catheterization: Yes Cardiovascular Problems: Yes (PACEMAKER/DEFIB) High Cholesterol: Yes Chemotherapy: No Chest Pain: Yes Congestive Heart Failure: Yes COPD: No Cerebrovascular Accident: Yes (TIA X 3) Diabetes: No Diminished Hearing: No Deep Vein Thrombosis: Yes Endocrine: No Gastrointestinal Disorders: Yes GERD: Yes Genitourinary: No Hiatal Hernia: No Hypertension: Yes Immune Disorder: No Kidney Stones: No Musculoskeletal: No Neurologic: No Psychiatric: Yes (TREATED BY ZACHARIAH ARNETT IN PAST) Reproductive: No Respiratory: Yes Immunizations Current: Yes Radiation Therapy: No Renal Failure: No Sickle Cell Disease: No Sleep Apnea: No Thyroid Disease: No Ulcer: No PNEUMOCCOCAL Vaccine (Year): 2 Past Surgical History Abdominal Surgery: No AICD: Yes (BIO TRONIC 11/2011) Appendectomy: No Arteriovenous Shunt: No Cardiac Surgery: Yes Cholecystectomy: No Coronary Artery Bypass Graft: No Ear Surgery: No Endocrine Surgery: No Eye Surgery: No Genitourinary Surgery: No Gynecologic Surgery: No Insulin Pump: No Joint Replacement: No Neurologic Surgery: No Oral Surgery: No Pacemaker: Yes (biotronik ) Thoracic Surgery: No Other Surgery: Yes (AICD) Social History Alcohol Use: Yes (occassionaly ) Tobacco Use: Yes (3 cig a day ) Substance Use: No Allergies-Medications (Allergen,Severity, Reaction): Coded Allergies: No Known Allergies (Unverified Adverse Reaction, Unknown, 01/06/18) Reported Meds & Prescriptions Reported Meds & Active Scripts Active Ativan (Lorazepam) 1 Mg Tab 1 Mg PO Q6H PRN Reported Prozac (Fluoxetine HCl) 10 Mg Cap 10 Mg PO DAILY Atorvastatin (Atorvastatin Calcium) 20 Mg Tab 20 Mg PO HS Carvedilol 12.5 Mg Tab 12.5 Mg PO BID Xarelto (Rivaroxaban) 20 Mg Tab 20 Mg PO DAILY Lisinopril 20 Mg Tab 20 Mg PO DAILY Review of Systems General / Constitutional: No: Fever Eyes: No: Visual changes HENT: No: Headaches Cardiovascular: Positive: Chest Pain or Discomfort Respiratory: No: Shortness of Breath Gastrointestinal: No: Abdominal Pain Genitourinary: No: Dysuria Musculoskeletal: No: Pain Skin: No Rash Neurologic: No: Weakness Psychiatric: No: Depression Endocrine: No: Polydipsia Hematologic/Lymphatic: No: Easy Bruising Physical Exam Narrative GENERAL: Well-nourished, well-developed patient. SKIN: Focused skin assessment warm/dry. HEAD: Normocephalic. EYES: No scleral icterus. No injection or drainage. NECK: Supple, trachea midline. No JVD or lymphadenopathy. CARDIOVASCULAR: Regular rate and rhythm without murmurs, gallops, or rubs. RESPIRATORY: Breath sounds equal bilaterally. No accessory muscle use. GASTROINTESTINAL: Abdomen soft, non-tender, nondistended. MUSCULOSKELETAL: No cyanosis, or edema. BACK: Nontender without obvious deformity. No CVA tenderness. Data Data Last Documented VS Vital Signs Date Time Temp Pulse Resp B/P (MAP) Pulse Ox O2 Delivery O2 Flow Rate FiO2 04/02/18 15:19 98.4 63 14 144/64 (90) 98 Orders Orders Electrocardiogram (04/02/18 15:22) Complete Blood Count With Diff (04/02/18 15:30) Basic Metabolic Panel (Bmp) (04/02/18 15:30) Ckmb (Isoenzyme) Profile (04/02/18 15:30) Troponin I (04/02/18 15:30) CKMB (04/02/18 15:41) CKMB% (04/02/18 15:41) Ed Discharge Order (04/02/18 18:34) Labs Laboratory Tests Test 04/02/18 15:41 White Blood Count 9.3 TH/MM3 Red Blood Count 5.17 MIL/MM3 Hemoglobin 15.0 GM/DL Hematocrit 43.5 % Mean Corpuscular Volume 84.1 FL Mean Corpuscular Hemoglobin 29.0 PG Mean Corpuscular Hemoglobin Concent 34.5 % Red Cell Distribution Width 13.8 % Platelet Count 228 TH/MM3 Mean Platelet Volume 8.1 FL Neutrophils (%) (Auto) 57.8 % Lymphocytes (%) (Auto) 27.4 % Monocytes (%) (Auto) 8.9 % Eosinophils (%) (Auto) 5.5 % Basophils (%) (Auto) 0.4 % Neutrophils # (Auto) 5.4 TH/MM3 Lymphocytes # (Auto) 2.5 TH/MM3 Monocytes # (Auto) 0.8 TH/MM3 Eosinophils # (Auto) 0.5 TH/MM3 Basophils # (Auto) 0.0 TH/MM3 CBC Comment DIFF FINAL Differential Comment Blood Urea Nitrogen 15 MG/DL Creatinine 1.05 MG/DL Random Glucose 112 MG/DL Calcium Level 9.0 MG/DL Sodium Level 140 MEQ/L Potassium Level 3.6 MEQ/L Chloride Level 104 MEQ/L Carbon Dioxide Level 28.7 MEQ/L Anion Gap 7 MEQ/L Estimat Glomerular Filtration Rate 77 ML/MIN Total Creatine Kinase 150 U/L Creatine Kinase MB 2.5 NG/ML Troponin I LESS THAN 0.02 NG/ML MDM Medical Decision Making Medical Screen Exam Complete: Yes Emergency Medical Condition: Yes Interpretation(s) 1840 2 PM. EKG shows sinus rhythm nonspecific ST-T wave. Cardiac enzymes are normal. Differential Diagnosis Differential diagnosis including musculoskeletal, angina, MO, PE, pneumothorax. Narrative Course 42-year-old male complains of intermittent muscular spasm left anterior chest wall. EKG unremarkable. Cardiac enzymes unremarkable. Diagnosis Primary Impression: Atypical chest pain Patient Instructions: General Instructions Additional Instructions: Follow-up with personal physician and crematory attendant. Return if increasing chest pain shortness of breath. Med/Other Pt SpecificInfo: No Change to Meds Disposition: 01 DISCHARGE HOME Condition: Stable Michael Cota MD Apr 02, 2018 18:43
--- NOTE | 2018-04-02 20:53 | EKG ---
Date Performed: 04/02/2018 Time Performed: 15:28:17 PTAGE: 42 years EKG: SINUS BRADYCARDIA BORDERLINE ECG NO PREVIOUS TRACING DOCTOR: Richard Ramires Interpretating Date/Time 04/02/2018 20:51:26
== END 2018-04-02 19:10 | disposition home or self-care (01) ==
LOC: NEPC 15:01
DX: R07.89 Other chest pain (principal); R00.1 Bradycardia, unspecified; R20.2 Paresthesia of skin; I11.0 Hypertensive heart disease with heart failure; I48.91 Unspecified atrial fibrillation; I50.9 Heart failure, unspecified; E78.5 Hyperlipidemia, unspecified; E78.00 Pure hypercholesterolemia, unspecified; M19.90 Unspecified osteoarthritis, unspecified site; F32.9 Major depressive disorder, single episode, unspecified; F41.0 Panic disorder [episodic paroxysmal anxiety]; F17.210 Nicotine dependence, cigarettes, uncomplicated; Z86.73 Personal history of transient ischemic attack (TIA), and cerebral infarction without residual deficits; Z95.810 Presence of automatic (implantable) cardiac defibrillator; Z86.718 Personal history of other venous thrombosis and embolism; Z79.01 Long term (current) use of anticoagulants; Z79.899 Other long term (current) drug therapy
CPT/HCPCS: 80048; 82550; 82552; 84484; 85025; 93005